=== PATIENT | male | born 1980 | race African-American/Black ===

== ENCOUNTER 2021-02-03 05:58 | Emergency (ER) | payer MEDICAID ==
[~2021-02-03] VITALS: Ht 167.6 cm; Wt 71.4 kg
[2021-02-03 06:02] VITALS: BP 111/70
[2021-02-03 06:56] LABS: COVID AG,FIA SOURCE NASAL SWAB
== END 2021-02-03 11:46 | disposition home or self-care (01) ==
LOC: EMS 06:08
DX: B34.9 Viral infection, unspecified (principal); R51.9 Headache, unspecified; R11.10 Vomiting, unspecified; Z20.822 Contact with and (suspected) exposure to COVID-19; F17.210 Nicotine dependence, cigarettes, uncomplicated
CPT/HCPCS: 99283